=== PATIENT | female | born 1940 | race Caucasian/White ===

== ENCOUNTER → 2017-04-24 | Outpatient (CLI) | payer OTHER, BC | LOC: ULTRA 07:53 | DX: M79.605 Pain in left leg (principal); R60.0 Localized edema ==

== ENCOUNTER → 2017-10-14 | Outpatient (CLI) | payer OTHER, BC ==
--- NOTE | ~2017-10-14 | 2DMMODE ---
[facility] [employer] [id number] 2 D/M-MODE ECHOCARDIOGRAM Name: CHERYL GRIDER Room #: REG [facility]#: [id number] Admission: 10/14/17 Attend Phys: Clarke Jaffe MD Discharge: Date of : 38 Date of Service: 10/14/17 1552 Report #: [id number] THIS REPORT FOR: //name// APPROVED REPORT Study performed: 10/14/2017 13:15:43 EXAM: Comprehensive 2D, Doppler, and color-flow Echocardiogram Patient Location: Echo lab BSA: 2.09 HR: 59 bpm BP: 146/88 mmHg Other Information Study Quality: Adequate Indications Hypertension/HDD Edema. 2D Dimensions RVDd: 34.24 mm LVEF(%): 59.46 (>50%) IVSd: 9.83 (7-11mm) LVOT Diam: 19.06 (18-24mm) LVDd: 51.45 mm PWd: 9.83 (7-11mm) Ascending Ao: 28.80 (22-36mm) LVDs: 35.10 (25-40mm) Aortic Root: 27.71 mm IVC: 19.00 mm Freeman's LVEF: 59.46 % Volumes Left Atrial Volume (Systole) Single Plane 4CH: 40.71 mL Single Plane 2CH: 36.57 mL LA ESV Index: 20.00 mL/m2 Aortic Valve AoV Peak Marco.: 1.45 m/s AO Peak Gr.: 8.36 mmHg LVOT Max P.08 mmHg LVOT Max V: 1.13 m/s JUANA Vmax: 2.22 cm2 Mitral Valve E/A Ratio: 1.1 MV Decel. Time: 218.94 ms MV E Max Marco.: 0.64 m/s [facility] [employer] [id number] 2 D/M-MODE ECHOCARDIOGRAM Name: CHERYL GRIDER Room #: [facility]#: [id number] Admission: 10/14/17 Attend Phys: Clarke Jaffe MD Discharge: Date of : 38 Date of Service: 10/14/17 1552 Report #: [id number] MV A Marco.: 0.57 m/s MV PHT: 63.49 ms IVRT: 129.18 ms Pulmonary Valve PV Peak Marco.: 0.96 m/s PV Peak Gr.: 3.69 mmHg Pulmonary Vein P Vein S: 0.47 m/s P Vein A: 0.31 m/s P Vein D: 0.32 m/s P Vein A Dur.: 124.6 msec P Vein S/D Ratio: 1.47 Tricuspid Valve TR Peak Marco.: 2.81 m/s TR Peak Gr.: 31.66 mmHg PA Pressure: 37.00 mmHg Left Ventricle The left ventricle is normal size. There is normal LV segmental wall motion. There is normal left ventricular wall thickness. The left ventricular systolic function is normal. The left ventricular ejection fraction is within the normal range. LVEF is 60-65%. The left ventricular diastolic function is normal. Right Ventricle The right ventricle is normal size. The right ventricular systolic function is normal. Atria The left atrium size is normal. The right atrium size is normal. Aortic Valve The aortic valve is normal in structure. No aortic regurgitation is present. There is no aortic valvular stenosis. Mitral Valve The mitral valve is normal in structure. Trace to mild mitral regurgitation. No evidence of mitral valve stenosis. Tricuspid Valve The tricuspid valve is normal in structure. There is trace tricuspid regurgitation. Estimated PAP 37 mmHg. There is mild pulmonary hypertension. Pulmonic Valve [address] [id number] 2 D/M-MODE ECHOCARDIOGRAM Name: CHERYL GRIDER Room #: [facility]#: [id number] Admission: 10/14/17 Attend Phys: Clarke Jaffe MD Discharge: Date of : 38 Date of Service: 10/14/17 1552 Report #: [id number] The pulmonary valve is normal in structure. Trace pulmonic regurgitation. Great Vessels The aortic root is normal in size. IVC is normal in size and collapses >50% with inspiration. Pericardium There is no pericardial effusion. <Conclusion> The left ventricular systolic function is normal. There is normal LV segmental wall motion. LVEF is 60-65%. The aortic valve is normal in structure. No aortic regurgitation or stenosis The mitral valve is normal in structure. Trace to mild mitral regurgitation. Pulmonary artery pressure of 37mmHg There is no pericardial effusion. <ELECTRONICALLY SIGNED> By: Javier Correa MD, FACC 10/14/17 [phone] Javier Correa MD, FACC /INF
== END ==
LOC: CV 08:07
DX: I10 Essential (primary) hypertension (principal); R60.9 Edema, unspecified

== ENCOUNTER → 2019-09-01 | Outpatient (CLI) | payer OTHER, BC | LOC: RAD 12:20 | DX: G47.33 Obstructive sleep apnea (adult) (pediatric) (principal); R05 Cough; R06.00 Dyspnea, unspecified; E66.01 Morbid (severe) obesity due to excess calories; Z68.42 Body mass index [BMI] 45.0-49.9, adult; Z99.89 Dependence on other enabling machines and devices ==

== ENCOUNTER → 2019-09-06 | Outpatient (CLI) | payer OTHER, BC | LOC: CAT 13:36 | DX: M51.34 Other intervertebral disc degeneration, thoracic region (principal); M19.012 Primary osteoarthritis, left shoulder; M19.011 Primary osteoarthritis, right shoulder ==